=== PATIENT | male | born 1955 | race Caucasian/White ===

== ENCOUNTER 2018-09-19 21:31 | Emergency (ER) | payer BC, OTHER ==
[2018-09-19] MEDS: HYDROmorphONE 2 MG/ML SYG IM (22:17)
== END 2018-09-19 23:25 | disposition home or self-care (01) ==
LOC: FTE 21:31
DX: M54.40 Lumbago with sciatica, unspecified side (principal)
CPT/HCPCS: 96372; 99284-25